=== PATIENT | male | born 1950 | race Caucasian/White ===

== ENCOUNTER → 2017-06-17 | Outpatient (CLI) | payer MEDICARE ==
[~2017-06-17] MED LIST: DEXILANT60 MG PO; LOTREL 10-20 M1 EACH PO; NORCO 5-325 TA1 EACH PO
--- NOTE | 2017-06-17 11:11 | Diagnostic Imaging Report ---
PROCEDURE:ABDOMEN COMP INCL UPR OR DECUB INDICATION:Constipation COMPARISON:None. FINDINGS:Large amount of small and large bowel gas is present. Scattered intermixed with fecal material is seen. There is no GI distention. Distal rectal fecal material and gas is present. Surgical sutures are present at the GE junction. No free air. Mild degenerative changes of the spine. CONCLUSION:Nonspecific abdominal series. Will Gastelum D.O. Dictated by: Will Gastelum D.O. on 06/17/2017 at 11:11 Electronically approved by: Will Gastelum D.O. on 06/17/2017 at 11:11
== END ==
LOC: RAD 10:08
PROVIDERS: ATTEND Internal Medicine Gastroenterology
DX: K59.00 Constipation, unspecified (principal)

== ENCOUNTER → 2018-09-06 | Outpatient (CLI) | payer MEDICARE ==
--- NOTE | 2018-09-06 10:12 | Diagnostic Imaging Report ---
EXAMINATION: PA and lateral views of the chest. COMPARISON: 07/21/2016 CLINICAL HISTORY: Cough, acid reflux, cardiovascular screening DISCUSSION: Lungs are well-inflated and without focal consolidation, pleural effusion, or pneumothorax. Calcified granuloma in the right lower lung is unchanged. Stable cardiomediastinal contour with atherosclerotic calcification of the thoracic aorta. Normal heart size. No pulmonary edema. No acute osseous abnormality. Deformity of the distal right clavicle and acromioclavicular joint, unchanged. Multilevel degenerative disc changes with anterior wedging of a midthoracic vertebral body, unchanged. IMPRESSION: No acute cardiopulmonary abnormalities. Signed by: Dr. Vasile Caballero M.D. on 09/06/2018 10:08 AM
== END ==
LOC: RAD 09:11
PROVIDERS: ATTEND General Practice
DX: Z00.00 Encounter for general adult medical examination without abnormal findings (principal); Z13.6 Encounter for screening for cardiovascular disorders
CPT/HCPCS: 71046

== ENCOUNTER → 2021-09-28 | Outpatient (CLI) | payer MEDICARE ==
[~2021-09-28] MED LIST changes: +IOPAMIDOL 370 MG/ML 100 ML INFUS..BTL INJ ONE; +SODIUM CHLORIDE 0.9% 500ML 500 ML ONE
[2021-09-28 08:46] LABS: CREATININE, SERUM 1.27 mg/dL (0.72-1.25)
== END ==
LOC: CT 07:24
PROVIDERS: ATTEND Family Medicine
DX: J32.9 Chronic sinusitis, unspecified (principal); J98.59 Other diseases of mediastinum, not elsewhere classified
CPT/HCPCS: 36415; 70486; 70491; 82565; 84520; 96360; J7040; Q9967